=== PATIENT | male | born 1950 | race Caucasian/White ===

== ENCOUNTER 2021-08-10 10:30 | Outpatient (CLI) | payer OTHER, SELFPAY ==
[2021-08-10 20:22] LABS: Hematocrit 56.7 % (42.0-52.0); Hemoglobin 19.2 g/dL (14.0-18.0); Mean Corpuscular HGB Conc 33.9 g/dl (32-36); Mean Corpuscular Volume 94.5 fl (80-100); Mean Platelet Volume 9.3 fl (7.4-10.4); Platelet Count Result 238 k/mm3 (150-375); Red Cell Distribution Width 13.4 % (11.5-14.5); White Blood Count 6.2 K/mm3 (4.5-10.0)
[2021-08-10 21:00] LABS: Creatinine Urine 52.6 mg/dL
[2021-08-10 21:04] LABS: MALB Creatinine Ratio 177.4 mg/g (0-30); Microalbumin Urine Random 93.3 mg/L (0-16.7)
[2021-08-10 21:25] LABS: Alanine Aminotransferase 34 U/L (4-50); Albumin Level 4.8 g/dL (3.5-5.1); Alkaline Phosphatase 99 U/L (38-126); Anion Gap 12 mmol/L (8-16); Aspartate Amino Transferase 38 U/L (17-59); Bilirubin,Total 0.8 mg/dL (0.2-1.3); Blood Urea Nitrogen 17 mg/dL (9-20); Calcium 9.7 mg/dL (8.4-10.2); Carbon Dioxide 24 mmol/L (22-30); Chloride 102 mmol/L (98-107); Cholesterol 213 mg/dL (0-200); Estimated Glomerular Filt Rate > 60; Glucose 175 mg/dL (65-110); HDL Direct 53 mg/dL; Potassium 4.6 mmol/L (3.4-5.0); Sodium 138 mmol/L (137-145); Triglycerides 99 mg/dL (<150)
[2021-08-10 21:35] LABS: LDL Cholesterol Direct 133 mg/dL
[2021-08-10 22:25] LABS: Hemoglobin A1C 8.6 % (<5.7)
== END 2021-08-10 10:31 | disposition home or self-care (01) ==
PROVIDERS: PCP Family Medicine; Visit Provider Family Medicine
DX: E11.9 Type 2 diabetes mellitus without complications (principal); E78.5 Hyperlipidemia, unspecified
CPT/HCPCS: 36415; 80053; 80061; 82043; 83036; 84443; 85027

== ENCOUNTER 2021-08-14 09:04 | Outpatient (CLI) | payer OTHER, SELFPAY ==
[2021-08-19 12:40] LABS: Testosterone Free 118.6 pg/mL (35.0-155.0); Testosterone Total 596 ng/dL (250-1100)
== END 2021-08-14 09:05 | disposition home or self-care (01) ==
PROVIDERS: PCP Family Medicine; Visit Provider Family Medicine
DX: E11.9 Type 2 diabetes mellitus without complications (principal); E78.5 Hyperlipidemia, unspecified
CPT/HCPCS: 36415; 84402; 84403

== ENCOUNTER 2021-09-15 12:47 | Outpatient (CLI) | payer OTHER, SELFPAY ==
--- NOTE | 2021-09-15 12:54 | ECHO_ITS ---
Patient Info Name: Nikunj Aparicio Age: 70 years : 1950 Gender: Male Ht: 70 in Wt: 260 lbs BSA: 2.46 m2 HR: 63 bpm BP: 152 / 85 mmHg Heart Rhythm: Sinus Rhythm Technical Quality: Fair Exam Date: 09/15/2021 1:03 PM Exam Location: [facility] Patient Status: Outpatient Admit Date: 09/15/2021 Staff Ordering Physician: Denny Montes MD Warehouse Worker: Bita Hallman RDCS Attending Provider: Denny Montes MD Referring Physician: Simon HATCH; Exam Type: CA echo doppler color flow Study Info Indications - Nonrheumatic aortic (valve) stenosis Complete two-dimensional, color flow and Doppler transthoracic echocardiogram is performed. Summary 1. Complete two-dimensional, color flow and Doppler transthoracic echocardiogram is performed. 2. Left ventricular chamber dimension is normal. 3. Left ventricular systolic function is normal, estimated at 65-70%. 4. There is mildly increased left ventricular wall thickness. 5. The left ventricular diastolic function is grade I diastolic dysfunction. 6. E/e' 9 is minimally elevated. 7. There is severe aortic valve sclerosis. 8. There is severe aortic valve stenosis with a peak velocity of 404 cm/s, mean gradient of 35 mmHg, and aortic valve area of 0.6 cm2. 9. No pulmonary hypertension, estimated pulmonary arterial systolic pressure is 19 mmHg. Left Ventricle E/e' 9 is minimally elevated. Left ventricular chamber dimension is normal. Left ventricular systolic function is normal, estimated at 65-70%. There is mildly increased left ventricular wall thickness. The left ventricular diastolic function is grade I diastolic dysfunction. Right Ventricle Right ventricular chamber dimension is normal. Right ventricular systolic function is normal. Left Atria Left atrial chamber dimension is normal. Right Atria Right atrial chamber dimension is normal. Aortic Valve The aortic valve is probable trileaflet. There is severe aortic valve sclerosis. There is severe aortic valve stenosis with a peak velocity of 404 cm/s, mean gradient of 35 mmHg, and aortic valve area of 0.6 cm2. There is no aortic valve regurgitation. Pulmonic Valve There is no pulmonic regurgitation. Mitral Valve There is no mitral valve stenosis. There is no mitral valve regurgitation. Tricuspid Valve There is no tricuspid valve regurgitation. No pulmonary hypertension, estimated pulmonary arterial systolic pressure is 19 mmHg. Pericardium/Pleural There is no pericardial effusion. Inferior Vena Cava Normal inferior vena cava with >50% collapse upon inspiration consistent with normal right atrial pressure, 5 mmHg. Aorta The aortic root size at the sinus of Valsalva is normal. Left Ventricular Outflow Tract Name Value Normal LVOT 2D LVOT Diameter 2.0 cm LVOT Doppler LVOT Peak Gradient 3 mmHg LVOT Mean Gradient 2 mmHg LVOT VTI 14 cm LVOT VTI/AV VTI Ratio 0.2 LVOT Stroke Volume 46 ml LVOT CO
== END 2021-09-15 12:48 | disposition home or self-care (01) ==
LOC: ANHCARD 12:49
PROVIDERS: PCP Family Medicine; Visit Provider Family Medicine
DX: I35.0 Nonrheumatic aortic (valve) stenosis (principal)
CPT/HCPCS: 93306

== ENCOUNTER 2021-10-21 01:23 | Day surgery (SDC) | payer OTHER, SELFPAY ==
[2021-10-20 11:58] VITALS: BMI 37.0
--- NOTE | 2021-10-20 12:53 | SUR.PREOP ---
At 1244 10/20/21 After preprocedure call to patient I Dr. Davison made aware of patient's stop bang score of 13 and LAURA with use of CPAP with nasal pillows. I informed Dr. Davison patient has also had a surgery for LAURA about 25 years ago to remove soft palate/uvula and tongue stapling and he now chokes easier. Dr. Davison does not want to involve anesthesia with the case and prefers to continue with moderation sedation. I informed Dr. Davison and rim fire charger operatorADDISON Argueta that I advised patient bring his home CPAP with him to procedure and that we would need to involve biomed and respiratory therapy if it is decided that it needs to be used pre/post procedure.
[2021-10-21] VITALS (9 sets, daily range): BP systolic 107–162; BP diastolic 73–104; PULSE 57–69; RESP 12–20; TEMP 36.1; O2SAT 90–97; BMI 38.8
--- NOTE | 2021-10-21 10:06 | ECHO_ITS ---
Patient Info Name: Nikunj Aparicio Age: 70 years : 1950 Gender: Male Ht: 70 in Wt: 265 lbs BSA: 2.49 m2 HR: 78 bpm BP: 125 / 81 mmHg Exam Date: 10/21/2021 10:41 AM Exam Location: [facility] Exam Room: [facility] Patient Status: Outpatient Admit Date: 10/21/2021 Staff Ordering Physician: Lamin Davison DO [employer] Supervisor: Hattie Garcia RDCS Attending Provider: Lamin Davison DO Referring Physician: Saman SHER; Exam Type: CA echo transesophageal Study Info Indications - NONRHEUMATIC AORTIC VALVE STENOSIS Complete two-dimensional, color flow and Doppler transesophageal study is performed. Contrast/Agitated Saline Contrast/Ag. Saline: Agitated Saline Amount: 10.00 ml Existing IV Access: Yes IV Access Condition: patent with no signs of infiltration Procedure Details Risks/benefits/alternative treatment discuss with patient and he is agreeable for procedure. Patient monitored and BP 120/80, HR 64 bpm and pulse ox 98%. Patient given cetacaine spray x 2. Given Versed 2 mg and Fentanyl 50 mcg IV for conscious sedation. RONAN probe advanced to posterior oropharynx and he swallowed probe without incident. Images were obtained at multiple levels of esophagus. RONAN probe withdrawn and no blood noted on RONAN probe tip. Patient tolerated procedure well. No complications. Summary 1. Left ventricular chamber dimension is normal. 2. Left ventricular systolic function is normal with an ejection fraction of 60-65% by visual inspection. 3. The left ventricular diastolic function is indeterminate. 4. Agitated saline injection opacified right cardiac chambers and shunt to left cardiac chambers suggestive of patent foramen ovale. 5. There is severe aortic valve sclerosis. 6. There is critical aortic valve stenosis. By planimetry the aortic valve area is 0.5 cm2. 7. There is mild mitral valve regurgitation. Left Ventricle Left ventricular systolic function is normal with an ejection fraction of 60-65% by visual inspection. Left ventricular chamber dimension is normal. The left ventricular diastolic function is indeterminate. Right Ventricle Right ventricular chamber dimension is normal. Right ventricular systolic function is normal. Left Atria Left atrial chamber dimension is normal. Right Atria Right atrial chamber dimension is normal. 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 Agitated saline injection opacified right cardiac chambers and shunt to left cardiac chambers suggestive of patent foramen ovale. Atrial Appendage There is no thrombus visualized in the left atrial appendage. Aortic Valve There is critical aortic valve stenosis. By planimetry the aortic valve area is 0.5 cm2. The aortic valve is trileaflet. There is severe aortic valve sclerosis. There is no aortic valve regurgitation. Pulmonic Valve There is no pulmonic regurgitation. Mitral Valve There is no mitral valve stenosis. There is mild mitral valve regurgitation. Tricuspid Valve There is no tricuspid valve regurgitation. Pericardium/Pleural There is no pericardial effusion. Inferior Vena Cava Inferior vena cava is not well visualized. Aorta The aortic root size at the sinus of Valsalva is normal. Aortic Valve Name Value Normal
== END 2021-10-21 13:25 | disposition home or self-care (01) ==
PROVIDERS: PCP Family Medicine; Visit Provider Internal Medicine Cardiovascular Disease
PROC: (CPT 93312; principal; 2021-10-21 10:30)
DX: I35.0 Nonrheumatic aortic (valve) stenosis (principal); R06.09 Other forms of dyspnea; I34.0 Nonrheumatic mitral (valve) insufficiency; E11.9 Type 2 diabetes mellitus without complications; I10 Essential (primary) hypertension; E78.5 Hyperlipidemia, unspecified; G47.33 Obstructive sleep apnea (adult) (pediatric); Z79.84 Long term (current) use of oral hypoglycemic drugs
CPT/HCPCS: 93312; 93320; 93325; J2250; J3010; J7040

== ENCOUNTER 2021-11-05 08:21 | Outpatient (CLI) | payer OTHER, SELFPAY ==
[2021-11-05 18:27] LABS: Basophils Absolute Auto 0.1 K/mm3 (0.0-0.1); Basophils Percent Auto 0.9 % (0.2-1.2); Eosinophils Absolute Auto 0.2 K/mm3 (0-0.3); Eosinophils Percent Auto 2.7 % (0-4.4); Hematocrit 46.5 % (42.0-52.0); Immature Granulocyte Absolute 0.02 K/mm3 (0.00-0.031); Immature Granulocyte Percent A 0.4 % (0-0.5); Lymphocytes Absolute Auto 1.35 K/mm3 (0.9-3.2); Lymphocytes Percent Auto 23.9 % (18.3-44.2); Mean Corpuscular HGB Conc 34.4 g/dl (32-36); Mean Corpuscular Hemoglobin 31.6 pg (26-34); Mean Corpuscular Volume 91.9 fl (80-100); Mean Platelet Volume 9.4 fl (7.4-10.4); Monocytes Absolute Auto 0.6 K/mm3 (0.1-0.6); Monocytes Percent Auto 10.8 % (2.6-8.5); Neutrophils Absolute Auto 3.5 K/mm3 (1.3-6.7); Neutrophils Percent Auto 61.3 % (45.5-73.1); Platelet Count Result 248 k/mm3 (150-375); Red Blood Count 5.06 M/mm3 (4.6-6.20); Red Cell Distribution Width 14.1 % (11.5-14.5); White Blood Count 5.6 K/mm3 (4.5-10.0)
[2021-11-05 19:32] LABS: Creatinine Urine 60.9 mg/dL
[2021-11-05 19:40] LABS: Alanine Aminotransferase 38 U/L (6-50); Albumin Level 4.8 g/dL (3.5-5.1); Alkaline Phosphatase 115 U/L (38-126); Anion Gap 9 mmol/L (8-16); Aspartate Amino Transferase 32 U/L (17-59); Bilirubin,Total 0.7 mg/dL (0.2-1.3); Blood Urea Nitrogen 26 mg/dL (9-20); Calcium 9.3 mg/dL (8.4-10.2); Carbon Dioxide 25 mmol/L (22-30); Chloride 101 mmol/L (98-107); Cholesterol 228 mg/dL (0-200); Estimated Glomerular Filt Rate > 60; Glucose 182 mg/dL (65-110); HDL Direct 69 mg/dL; Potassium 4.7 mmol/L (3.4-5.0); Sodium 135 mmol/L (137-145); Triglycerides 107 mg/dL (<150)
[2021-11-05 19:41] LABS: MALB Creatinine Ratio 44.3 mg/g (0-30)
[2021-11-05 19:50] LABS: LDL Cholesterol Direct 123 mg/dL
[2021-11-05 19:52] LABS: Hemoglobin A1C 9.2 % (<5.7)
== END 2021-11-05 08:22 | disposition home or self-care (01) ==
PROVIDERS: PCP Family Medicine; Visit Provider Family Medicine
DX: E11.9 Type 2 diabetes mellitus without complications (principal); D58.2 Other hemoglobinopathies
CPT/HCPCS: 36415; 80053; 80061; 82043; 83036; 85025

== ENCOUNTER 2021-11-11 02:36 | Day surgery (SDC) | payer OTHER, SELFPAY ==
[2021-11-10 16:03] VITALS: BMI 38.0
[2021-11-11] VITALS (11 sets, daily range): BP systolic 108–137; BP diastolic 65–82; PULSE 60–74; RESP 13–23; TEMP 36.1–36.6; O2SAT 92–97; BMI 37.9
[2021-11-11 08:20] LABS: Basophils Percent Auto 0.8 % (0.2-1.2); Eosinophils Absolute Auto 0.2 K/mm3 (0-0.3); Eosinophils Percent Auto 3.6 % (0-4.4); Hematocrit 43.4 % (42.0-52.0); Hemoglobin 14.7 g/dL (14.0-18.0); Immature Granulocyte Absolute 0.03 K/mm3 (0.00-0.031); Immature Granulocyte Percent A 0.6 % (0-0.5); Lymphocytes Percent Auto 27.7 % (18.3-44.2); Mean Corpuscular HGB Conc 33.9 g/dl (32-36); Mean Corpuscular Hemoglobin 30.9 pg (26-34); Mean Corpuscular Volume 91.4 fl (80-100); Mean Platelet Volume 8.7 fl (7.4-10.4); Monocytes Absolute Auto 0.6 K/mm3 (0.1-0.6); Monocytes Percent Auto 10.9 % (2.6-8.5); Neutrophils Absolute Auto 2.9 K/mm3 (1.3-6.7); Neutrophils Percent Auto 56.4 % (45.5-73.1); Platelet Count Result 212 k/mm3 (150-375); Red Blood Count 4.75 M/mm3 (4.6-6.20); Red Cell Distribution Width 13.5 % (11.5-14.5); White Blood Count 5.1 K/mm3 (4.5-10.0)
[2021-11-11] MEDS: SODIUM CHLORIDE 0.9% IV 500 ML 100 ML IV CONT (08:20)
--- NOTE | 2021-11-11 08:23 | SUR.PREOP ---
Patient's weight on bedscale was 109.7 kg. Patient does not feel this is accurate. His stated weight is 265 lbs which is what he prefers we use.
[2021-11-11 08:29] LABS: Anion Gap 8 mmol/L (8-16); Blood Urea Nitrogen 29 mg/dL (9-20); Calcium 8.7 mg/dL (8.4-10.2); Carbon Dioxide 24 mmol/L (22-30); Chloride 105 mmol/L (98-107); Estimated CRCL calculation 81 ml/min; Estimated Glomerular Filt Rate > 60; Glucose 202 mg/dL (65-110); Potassium 4.5 mmol/L (3.4-5.0); Sodium 137 mmol/L (137-145)
[2021-11-11 08:31] LABS: Prothrombin Time 12.4 Seconds (11.1-14.7)
--- NOTE | 2021-11-11 08:38 | SUR.PREOP ---
Dr. Kiran at bedside talking with patient and at bedside regarding the procedure. Dr. Kiran reports patient will need a right heart cath in addition to left heart cath. No additional consent form is needed per Dr. Kiran.
--- NOTE | 2021-11-11 09:00 | WPDMODSED ---
Moderate Sedation Note-Pt Data Patient Data Diagnosis: Aortic stenosis Present Complaint: exertional dyspnea Procedure to be performed/Plan: right and left heart catheterization Allergies Allergy/AdvReac Type Severity Reaction Status Date / Time No Known Allergies Allergy Verified 11/11/21 08:24 Home Medications Medication Instructions Recorded Confirmed Type dapagliflozin 10 mg tablet 10 mg PO DAILY 08/10/21 11/10/21 History ([facility]) glipizide 5 mg tablet 5 mg PO DAILY 08/10/21 11/10/21 History liothyronine 50 mcg tablet 50 mcg PO DAILY 08/10/21 11/11/21 History lisinopril 20 mg tablet 20 mg PO DAILY #90 tabs 08/10/21 11/11/21 Rx metformin 500 mg tablet 500 mg PO BID #180 tabs 09/14/21 11/10/21 Rx cyclobenzaprine 10 mg tablet 10 mg PO TID PRN Back Pain 10/20/21 11/10/21 History ibuprofen 800 mg tablet 800 mg PO TID PRN Pain 10/20/21 11/11/21 History zinc 50 mg tablet 50 mg PO DAILY 10/20/21 11/11/21 History Adult One Daily Multivitamin 1 tablet PO DAILY 11/10/21 11/11/21 History vitamin B complex 1 cap PO DAILY 11/10/21 11/11/21 History Current Medications: Active Medications Sodium Chloride (Normal Saline Iv) 500 mls @ 100 mls/hr IV CONT .Q5H ELY Last Admin: 11/11/21 08:20 Dose: 100 mls/hr Sedation/Anesthesia: No previous sedation/anesthesia problems (including family history). [facility] Past Medical History Medical History (Updated 11/05/21 @ 07:47 by Denny Montes MD) Diabetes Family History Family History Father Heart disease Mother Depression Sibling Heart disease Grandparent Diabetes mellitus Social History Social History (Updated 10/15/21 @ 09:59 by Rohini Coleman CMA) Smoking status: Never smoker Second hand tobacco smoke exposure: No Alcohol intake: current Drinks per week: 2 Substance use: never Substance use type: does not use Living arrangements: with family Additional living arrangements comments: lifes with [facility] Gender identity (if verbalized by the patient): Male Sexual Orientation (if Verbalized by the Patient): Straight or Heterosexual Spiritual care concerns: No Agree to blood products: No Mod Sed Physical Exam Physical Exam Pre Procedural Exam: Normal: Neck, Throat, Airway, Lungs, Heart Size, Heart Rate ( grade 2-3/6 crescendo decrescendo murmur mid to late peaking), Heart Rhythm, Neuro Exam and Extremities and Variation: Appearance ( obese gentleman no distress) Hours since solid foods: 12 Hours since liquid intake: 12 Mallampati Classification: class II Internal Medicine - PN: Obj Da Vital Signs Vital Signs: Vital Signs - 24 hr 11/11/21 08:18 Temperature 36.1 C L Pulse Rate 74 Respiratory Rate 15 Blood Pressure 123/77 Pulse Oximetry 96 Oxygen Delivery Room Air Meds/Results Medications: Active Medications Generic Name Dose Route Start Last Admin Trade Name Freq PRN Reason Stop Dose Admin Sodium Chloride 500 mls @ 100 mls/hr 11/11/21 07:00 11/11/21 08:20 Normal Saline Iv IV CONT 100 mls/hr .Q5H ELY Administration Labs CBC & Chem 7: 11/11/21 08:13 11/11/21 08:13 Labs: Laboratory Results - last 24 hr 11/11/21 11/11/21 11/11/21 08:13 08:13 08:13 WBC 5.1 RBC 4.75 Hgb 14.7 Hct 43.4 MCV 91.4 MCH 30.9 MCHC 33.9 RDW 13.5 Plt Count 212 MPV 8.7 Immature Gran % (Auto) 0.6 H Neut % (Auto) 56.4 Lymph % (Auto) 27.7 [place] % (Auto) 10.9 H Eos % (Auto) 3.6 Baso % (Auto) 0.8 Lymph # (Auto) 1.40 [place] # (Auto) 0.6 Eos # (Auto) 0.2 Baso # (Auto) 0.0 Abs Immat Gran (auto) 0.03 Absolute Neuts (auto) 2.9 Absolute Nucleated RBC 0.0 Nucleated RBC % 0.0 PT 12.4 INR 1.0 Sodium 137 Potassium 4.5 Chloride 105 Carbon Dioxide 24 Anion Gap 8 BUN 29 H Creatinine 1.00 Estim Creat Clear Calc 81 Est
--- NOTE | 2021-11-11 10:06 | WPDCARDPROC ---
Cardiac Cath Procedure Note Date of procedure:: 11/11/21 Performing physician:: Armani Kiran MD Indication:: aortic stenosis Brief clinical history:: this is a 70-year-old man reporting exhibit symptoms of exertional shortness of breath for several months. By exam and echo he has been found to have critical aortic valve stenosis. Left heart catheterization was scheduled by his noninvasive bakelite molder. Procedure Procedure performed:: Coronary angiogram Angio-Seal to right femoral artery Sedation/Medication given:: fentanyl 75 mg Versed 2 mg case start time 9:09 a.m. case end time 10:03 a.m. Access site:: right femoral artery Estimated blood loss:: 50 cc Procedure note:: patient was brought to the cardiac catheterization lab in the postabsorptive state where the right femoral triangle was prepared and draped in the usual fashion. Because of his diagnosis of critical the intention was to perform a right left heart catheterization. The patient received 20 cc of lidocaine in the right groin and using modified Seldinger technique the femoral artery was punctured and a 45 cm 6 Ukrainian Mode flexor sheath was placed into the descending aorta. I made multiple attempts to puncture the femoral vein unsuccessfully. I used vascular ultrasound and could not identify a significant vein to puncture for that reason I abandoned the right heart catheterization portion of the procedure. I then used a 5 Ukrainian angled pigtail catheter over the straight wire to sample pressure in the ascending aorta and used a straight wire to probe the stenotic aortic valve. I was unable to cross the stenotic valve in the in this fashion. I then used a 6 Ukrainian JR4 catheter to try to probe the valve with the same straight wire and once again despite and number of attempts the valve was not successfully crossed. The patient was having significant pain throughout the entire procedure with pain at the groin puncture site despite the lidocaine that was provided. In addition to that he received the fentanyl and Versed mentioned above and he did not seem to experience any said sedation response. For this reason the patient was significantly uncomfortable doing this. Following this I abandoned attempts to cross the valve and used a standard 5 Ukrainian FL4 catheter to engage and inject the left coronary artery and then the 5 Ukrainian JR4 catheter to attempt to engage the right coronary. 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 Following this the procedure was terminated an angiogram was done of the femoral artery through the sheath after which a 6 Ukrainian Angio-Seal device was deployed with a good hemostatic result. The patient as stated above was in significant pain during the procedure but other than this the procedure was uncomplicated there was no groin hematoma upon leaving the technology lab teacher. Findings:: Central aortic pressure was 132/82. The left main coronary artery is rather long and nicely patent the left anterior descending is a large caliber vessel extending down to the apex. The LAD has moderate proximal disease that is somewhat complex. In the proximally the LAD at its maximum exhibits about 70% stenosis. There is DEYVI 3 flow in the LAD. The major diagonal branch is small bifurcating vessel that has 95% stenosis. The circumflex is a moderate caliber vessel giving rise to the marginal branches. The circumflex system is angiographically free of disease. 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 There is collateral filling left to right to the RPDA and RPL noted on left coronary angiography. Conclusion:: 1. 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 chronic total occlusion of the proximal RCA wh
--- NOTE | 2021-11-11 12:55 | SUR.PHASEII ---
Pt activity progressing tolerated well, pt bed rest completed followed by HOB elevated 30, then sitting. Pt has walked to the restroom without difficulty, no bleeding or hematoma noted to site. Continue to monitor.
== END 2021-11-11 13:49 | disposition home or self-care (01) ==
PROVIDERS: PCP Family Medicine; Visit Provider Specialist
PROC: (CPT 93454; principal; 2021-11-11 08:30)
DX: I35.0 Nonrheumatic aortic (valve) stenosis (principal); I25.10 Atherosclerotic heart disease of native coronary artery without angina pectoris; R06.00 Dyspnea, unspecified; E11.9 Type 2 diabetes mellitus without complications; I10 Essential (primary) hypertension; E78.5 Hyperlipidemia, unspecified; G47.33 Obstructive sleep apnea (adult) (pediatric); Z79.84 Long term (current) use of oral hypoglycemic drugs
CPT/HCPCS: 36415; 80048; 85025; 85610; 93454; C1760; C1769; C1887; C1894; G0269; J1644; J2250; J3010; J7040

== ENCOUNTER 2022-02-11 10:22 | Outpatient (CLI) | payer OTHER, SELFPAY ==
--- NOTE | ~2022-02-11 | XR_ITS ---
EXAMINATION: XR abdomen obstructive series DATE: 02/11/2022 10:47 INDICATION: Constipation TECHNIQUE: Supine and upright views of the abdomen. FINDINGS: No prior studies for comparison. The visualized lung parenchyma is normal.. There is a nonobstructive bowel gas pattern. Gas and stool are seen throughout the colon to the level of the rectum. There is no free air. There is moderate l umbar spondylosis. IMPRESSION: 1. No acute abdominal abnormality. Reviewed, dictated and finalized at location B.
[2022-02-11 20:45] LABS: Thyroid Stimulating Hormone 0.681 uIU/mL (0.465-4.680)
[2022-02-11 21:17] LABS: Hemoglobin A1C 6.6 % (<5.7)
== END 2022-02-11 10:23 | disposition home or self-care (01) ==
PROVIDERS: PCP Family Medicine; Visit Provider Family Medicine
DX: K59.00 Constipation, unspecified (principal); K21.9 Gastro-esophageal reflux disease without esophagitis; R79.89 Other specified abnormal findings of blood chemistry; K14.6 Glossodynia; I35.9 Nonrheumatic aortic valve disorder, unspecified; I35.0 Nonrheumatic aortic (valve) stenosis; I25.10 Atherosclerotic heart disease of native coronary artery without angina pectoris; I10 Essential (primary) hypertension; G62.9 Polyneuropathy, unspecified; E78.5 Hyperlipidemia, unspecified; E66.9 Obesity, unspecified; E03.9 Hypothyroidism, unspecified; D75.1 Secondary polycythemia; E11.9 Type 2 diabetes mellitus without complications
CPT/HCPCS: 36415; 74019; 83036; 84443

== ENCOUNTER 2022-02-12 09:34 | Outpatient (CLI) | payer OTHER, SELFPAY ==
[2022-02-16 13:30] LABS: H pylori Ag Stool Not Detected (Not Detected)
== END 2022-02-12 09:35 | disposition home or self-care (01) ==
LOC: ANHBWCLAB 09:35
PROVIDERS: PCP Family Medicine; Visit Provider Family Medicine
DX: K21.9 Gastro-esophageal reflux disease without esophagitis (principal); E03.9 Hypothyroidism, unspecified; E66.9 Obesity, unspecified; E78.5 Hyperlipidemia, unspecified; G62.9 Polyneuropathy, unspecified; R79.89 Other specified abnormal findings of blood chemistry
CPT/HCPCS: 87338

== ENCOUNTER 2022-05-25 09:43 | Outpatient (CLI) | payer OTHER, SELFPAY ==
[2022-05-25 19:34] LABS: Hemoglobin 18.3 g/dL (14.0-18.0); Mean Corpuscular HGB Conc 33.9 g/dl (32-36); Mean Corpuscular Hemoglobin 29.9 pg (26-34); Mean Corpuscular Volume 88.1 fl (80-100); Mean Platelet Volume 9.7 fl (7.4-10.4); Platelet Count Result 252 k/mm3 (150-375); Red Blood Count 6.13 M/mm3 (4.6-6.20); Red Cell Distribution Width 15.1 % (11.5-14.5); White Blood Count 4.7 K/mm3 (4.5-10.0)
[2022-05-25 19:40] LABS: Alanine Aminotransferase 37 U/L (6-50); Albumin Level 4.7 g/dL (3.5-5.1); Alkaline Phosphatase 97 U/L (38-126); Anion Gap 5 mmol/L (8-16); Aspartate Amino Transferase 72 U/L (17-59); Blood Urea Nitrogen 17 mg/dL (9-20); Calcium 9.2 mg/dL (8.4-10.2); Carbon Dioxide 30 mmol/L (22-30); Chloride 98 mmol/L (98-107); Cholesterol 214 mg/dL (0-200); Estimated Glomerular Filt Rate > 60; Glucose 118 mg/dL (65-110); HDL Direct 50 mg/dL; Potassium 4.4 mmol/L (3.4-5.0); Sodium 133 mmol/L (137-145); Triglycerides 83 mg/dL (<150)
[2022-05-25 19:51] LABS: LDL Cholesterol Direct 112 mg/dL
[2022-05-25 20:14] LABS: Hemoglobin A1C 7.8 % (<5.7)
[2022-05-25 20:19] LABS: Prostate Specific Antigen 1.8 ng/mL (< OR = 4.0)
[2022-05-29 21:08] LABS: Testosterone Free 64.7 pg/mL (35.0-155.0); Testosterone Total 446 ng/dL (250-1100)
== END 2022-05-25 09:44 | disposition home or self-care (01) ==
PROVIDERS: PCP Family Medicine; Visit Provider Internal Medicine Cardiovascular Disease
DX: E11.9 Type 2 diabetes mellitus without complications (principal); I10 Essential (primary) hypertension; R79.89 Other specified abnormal findings of blood chemistry; E78.5 Hyperlipidemia, unspecified; Z12.5 Encounter for screening for malignant neoplasm of prostate
CPT/HCPCS: 36415; 80053; 80061; 83036; 84153; 84402; 84403; 85027; G0103

== ENCOUNTER 2022-05-27 10:18 | Outpatient (CLI) | payer OTHER, SELFPAY ==
--- NOTE | ~2022-05-27 | XR_ITS ---
EXAMINATION: XR shoulder RT min 2V INDICATION: Right shoulder pain TECHNIQUE: Four views of the right shoulder are submitted. COMPARISON: None FINDINGS: Normal alignment. No fracture. There is moderate to severe osteoarthritis of the acromiocla vicular joint. There is mild osteoarthritis of the glenohumeral joint. Soft tissues are unremarkable. IMPRESSION: 1. Moderate to severe osteoarthritis of the acromioclavicular joint. Reviewed, dictated and finalized at location L. O GAME TESTER
--- NOTE | ~2022-05-27 | XR_ITS ---
EXAMINATION: XR hip LT min 2V INDICATION: Left hip pain TECHNIQUE: Two views of the left hip are obtained. COMPARISON: None available FINDINGS: Bone alignment is normal. There is no fracture. There is mild osteoarthritis of the hip. Ph leboliths are noted in the pelvis. There is a subtle heterotopic ossification projecting in the soft tissues lateral to the proximal femur, likely prior injury. IMPRESSION: 1. Mild osteoarthritis. Reviewed, dictated and finalized at location L. STRIAL ELECTRICAL TECHNICIAN IMPRESSION: 1. Mild osteoarthritis.
--- NOTE | ~2022-05-27 | XR_ITS ---
EXAMINATION: XR hip RT min 2V DATE: 05/27/2022 10:39 INDICATION: Right hip pain TECHNIQUE: Two views of right hip were obtained. COMPARISON: None. FINDINGS: Bone alignment is normal. There is no fracture. There is mild osteoarthritis of the hip. Th e soft tissues are unremarkable. Phleboliths are noted in the pelvis. IMPRESSION: 1. Mild osteoarthritis. Reviewed, dictated and finalized at location L. TED CIRCUIT BOARD DRAFTER IMPRESSION: 1. Mild osteoarthritis.
== END 2022-05-27 10:19 | disposition home or self-care (01) ==
LOC: ANHBWCIMG 10:19
PROVIDERS: PCP Family Medicine; Visit Provider Family Medicine
DX: M16.0 Bilateral primary osteoarthritis of hip (principal); M19.011 Primary osteoarthritis, right shoulder
CPT/HCPCS: 73030; 73502

== ENCOUNTER 2022-08-24 09:25 | Outpatient (CLI) | payer OTHER, SELFPAY ==
[2022-08-24 18:40] LABS: Basophils Percent Auto 0.8 % (0.2-1.2); Eosinophils Absolute Auto 0.1 K/mm3 (0-0.3); Eosinophils Percent Auto 2.7 % (0-4.4); Hematocrit 40.4 % (42.0-52.0); Hemoglobin 13.4 g/dL (14.0-18.0); Immature Granulocyte Absolute 0.01 K/mm3 (0.00-0.031); Immature Granulocyte Percent A 0.2 % (0-0.5); Lymphocytes Absolute Auto 1.27 K/mm3 (0.9-3.2); Lymphocytes Percent Auto 24.4 % (18.3-44.2); Mean Corpuscular HGB Conc 33.2 g/dl (32-36); Mean Corpuscular Hemoglobin 31.2 pg (26-34); Mean Corpuscular Volume 94.2 fl (80-100); Mean Platelet Volume 9.2 fl (7.4-10.4); Monocytes Absolute Auto 0.6 K/mm3 (0.1-0.6); Monocytes Percent Auto 11.3 % (2.6-8.5); Neutrophils Absolute Auto 3.2 K/mm3 (1.3-6.7); Neutrophils Percent Auto 60.6 % (45.5-73.1); Platelet Count Result 237 k/mm3 (150-375); Red Blood Count 4.29 M/mm3 (4.6-6.20); White Blood Count 5.2 K/mm3 (4.5-10.0)
[2022-08-24 18:42] LABS: Alanine Aminotransferase 28 U/L (6-50); Albumin Level 4.4 g/dL (3.5-5.1); Alkaline Phosphatase 100 U/L (38-126); Anion Gap 4 mmol/L (8-16); Aspartate Amino Transferase 51 U/L (17-59); Blood Urea Nitrogen 22 mg/dL (9-20); Carbon Dioxide 33 mmol/L (22-30); Chloride 101 mmol/L (98-107); Estimated Glomerular Filt Rate > 60; Glucose 121 mg/dL (65-110); Potassium 5.1 mmol/L (3.4-5.0); Sodium 138 mmol/L (137-145)
[2022-08-24 18:57] LABS: Hemoglobin A1C 8.6 % (<5.7)
[2022-08-24 19:10] LABS: Thyroid Stimulating Hormone 0.259 uIU/mL (0.465-4.680)
[2022-08-24 19:24] LABS: Hepatitis B Surface Antigen Negative (Negative)
[2022-08-24 19:30] LABS: HAV RESULT Negative (Negative); Hepatitis B Core IgM Result Negative (Negative)
[2022-08-24 19:41] LABS: Hepatitis C Virus Antibody Negative (Negative)
== END 2022-08-24 09:26 | disposition home or self-care (01) ==
PROVIDERS: PCP Family Medicine; Visit Provider Family Medicine
DX: R74.01 Elevation of levels of liver transaminase levels (principal); E11.9 Type 2 diabetes mellitus without complications; E03.9 Hypothyroidism, unspecified; E78.5 Hyperlipidemia, unspecified; I25.10 Atherosclerotic heart disease of native coronary artery without angina pectoris; I25.810 Atherosclerosis of coronary artery bypass graft(s) without angina pectoris
CPT/HCPCS: 36415; 80048; 80074; 80076; 83036; 84443; 85025

== ENCOUNTER 2022-12-23 09:03 | Outpatient (CLI) | payer OTHER, SELFPAY ==
[2022-12-23 18:23] LABS: Basophils Absolute Auto 0.1 K/mm3 (0.0-0.1); Basophils Percent Auto 0.8 % (0.2-1.2); Eosinophils Absolute Auto 0.1 K/mm3 (0-0.3); Hematocrit 51.6 % (42.0-52.0); Hemoglobin 17.3 g/dL (14.0-18.0); Immature Granulocyte Absolute 0.01 K/mm3 (0.00-0.031); Immature Granulocyte Percent A 0.1 % (0-0.5); Lymphocytes Absolute Auto 1.07 K/mm3 (0.9-3.2); Lymphocytes Percent Auto 13.4 % (18.3-44.2); Mean Corpuscular HGB Conc 33.5 g/dl (32-36); Mean Corpuscular Hemoglobin 31.1 pg (26-34); Mean Corpuscular Volume 92.8 fl (80-100); Mean Platelet Volume 9.5 fl (7.4-10.4); Monocytes Absolute Auto 0.6 K/mm3 (0.1-0.6); Monocytes Percent Auto 7.2 % (2.6-8.5); Neutrophils Absolute Auto 6.2 K/mm3 (1.3-6.7); Neutrophils Percent Auto 77.5 % (45.5-73.1); Platelet Count Result 213 k/mm3 (150-375); Red Blood Count 5.56 M/mm3 (4.6-6.20); Red Cell Distribution Width 12.6 % (11.5-14.5)
[2022-12-23 18:29] LABS: Cholesterol 208 mg/dL (0-200); HDL Direct 42 mg/dL; Triglycerides 131 mg/dL (<150)
[2022-12-23 18:41] LABS: LDL Cholesterol Direct 120 mg/dL
[2022-12-23 20:38] LABS: Free T4 Free Thyroxine 0.08 ng/mL (0.78-2.19)
[2022-12-23 20:58] LABS: Hemoglobin A1C 9.4 % (<5.7)
[2022-12-29 04:52] LABS: Triiodothyronine T3 Free 5.2 pg/mL (2.3-4.2)
== END 2022-12-23 09:04 | disposition home or self-care (01) ==
PROVIDERS: PCP Family Medicine; Visit Provider Nurse Practitioner Adult Health
DX: D64.9 Anemia, unspecified (principal); E11.9 Type 2 diabetes mellitus without complications; I10 Essential (primary) hypertension; E03.9 Hypothyroidism, unspecified; E78.5 Hyperlipidemia, unspecified
CPT/HCPCS: 36415; 80061; 83036; 84439; 84443; 84481; 85025

== ENCOUNTER 2023-08-17 07:41 | Outpatient (CLI) | payer OTHER, SELFPAY ==
[2023-08-17 21:03] LABS: Alanine Aminotransferase 33 U/L (6-50); Albumin Level 4.3 g/dL (3.5-5.1); Alkaline Phosphatase 120 U/L (38-126); Anion Gap 5 mmol/L (4-12); Aspartate Amino Transferase 46 U/L (17-59); Bilirubin,Total 0.8 mg/dL (0.2-1.3); Blood Urea Nitrogen 24 mg/dL (9-20); Calcium 9.8 mg/dL (8.4-10.2); Carbon Dioxide 29 mmol/L (22-30); Chloride 100 mmol/L (98-107); Estimated Glomerular Filt Rate > 60; Glucose 205 mg/dL (65-110); Potassium 4.4 mmol/L (3.4-5.0); Sodium 134 mmol/L (137-145)
[2023-08-17 22:02] LABS: Creatinine Urine 141.6 mg/dL
[2023-08-17 22:07] LABS: MALB Creatinine Ratio 38.6 mg/g (0-30); Microalbumin Urine Random 54.7 mg/L (0-16.7)
[2023-08-17 22:09] LABS: Free T4 Free Thyroxine 0.07 ng/mL (0.78-2.19)
[2023-08-17 23:55] LABS: Hemoglobin A1C 9.7 % (<5.7)
== END 2023-08-17 07:42 | disposition home or self-care (01) ==
PROVIDERS: PCP Family Medicine; Visit Provider Family Medicine
DX: E11.9 Type 2 diabetes mellitus without complications (principal); E03.9 Hypothyroidism, unspecified
CPT/HCPCS: 36415; 80053; 82043; 83036; 84439